=== PATIENT | male | born 1985 | race Caucasian/White ===

== ENCOUNTER → 2018-09-29 | Outpatient (CLI) | payer BC ==
[~2018-09-29] MED LIST: CEFD300 PO; CIPDEXSU; Cortisporin Ear10 M1; IBUP800 PO; Norco 5-325 Ta1 EACH; SIME80CH PO
== END | disposition home or self-care (01) ==
LOC: LAB SHORT 18:30 → LAB 18:30
DX: L02.91 Cutaneous abscess, unspecified (principal)
CPT/HCPCS: 87070; 87075; 87077; 87205